=== PATIENT | male | born 1945 | race Two or more races ===

== ENCOUNTER 2017-08-22 19:03 | Inpatient (IN) | payer MEDICAID, OTHER ==
[~2017-08-22] VITALS: Ht 165.1 cm; Wt 76.6 kg
[2017-08-22 20:02] LABS: Basophils # (auto) 0 uL; Eosinophils # (auto) 0.2 uL; Monocytes # (auto) 0.8 uL; Neutrophils # (auto) 2.7 uL; Nucleated Red Blood Cells % 0.3 %; Red Blood Cells 4.45 10^6/uL (4.5-5.90)
[2017-08-22 20:06] LABS: Basophils % (auto) 0.5 % (0.0-2.0); Eosinophils % (auto) 3.1 % (0.0-7.0); Hemoglobin 10.7 g/dL (13.5-17.5); Lymphocytes # (auto) 2.7 uL; Lymphocytes % (auto) 41.5 % (10.0-50.0); Mean Corpuscular Hemoglobin 24.1 pg (28.0-32.0); Mean Corpuscular Hgb Conc. 32.4 g/dL (32.0-36.0); Mean Corpuscular Volume 74.2 fL (80.0-100.0); Monocytes % (auto) 12.6 % (0.0-12.0); Neutrophils % (auto) 42.3 % (37.0-80.0); Red Cell Distribution Width 17.2 % (11.8-14.3); White Blood Cell 6.5 10^3/uL (4.4-10.8)
[2017-08-22 20:13] LABS: Platelet Count (auto) 139 10^3/uL (140-450)
[2017-08-22 20:17] LABS: Anion Gap 3 (5-15); Blood Urea Nitrogen 19 mg/dL (7-18); Calcium 8.2 mg/dL (8.5-10.1); Carbon Dioxide 29 mmol/L (21-32); Chloride 106 mmol/L (98-107); Glucose 114 mg/dL (74-106); Lipase 119 U/L (73-393); Potassium 4.2 mmol/L (3.5-5.1); Sodium 138 mmol/L (136-145)
[2017-08-22 20:19] LABS: Amylase 49 U/L (25-115); BUN/Creatinine Ratio 13.3; GFR African American 63 mL/min; GFR Non-African American 52 mL/min
[2017-08-22 20:29] LABS: Alanine Aminotransferase 39 U/L (16-61); Alkaline Phosphatase 91 U/L (45-117); Aspartate Aminotransferase 27 U/L (15-37); Bilirubin, Total 0.6 mg/dL (0.2-1.0); Total Protein 6.5 g/dL (6.4-8.2)
[2017-08-22] MEDS ORDERED: SODIUM CHLORIDE 0.9% 1,000 ML IV ONE (21:30)
[2017-08-22 21:31] LABS: Urine Bacteria NONE SEEN /hpf (None Seen); Urine Blood 1+ /uL (Negative); Urine Mucus FEW (None Seen); Urine WBC 1 /hpf (0 - 3)
[2017-08-23] MEDS ORDERED: MORPHINE SULFATE 4 MG/ML SYR/VIAL IV PRN (04:30)
[2017-08-23] MEDS ORDERED: HYDROcodone-ACET 5/325MG TAB PO PRN (04:30)
[2017-08-23] MEDS ORDERED: ACETAMINOPHEN 500 MG TAB PO PRN (04:30)
[2017-08-23] MEDS: SODIUM CHLORIDE 0.9% 1,000 ML IV SCH ×2 (04:35→05:36)
[2017-08-23] MEDS: metroNIDAZOLE 500MG/100ML 100 ML IV SCH ×3 (05:36→22:48)
[2017-08-23 05:40] LABS: Hematocrit 27.1 % (41.0-53.0); White Blood Cell 5.9 10^3/uL (4.4-10.8)
[2017-08-23 05:46] LABS: Hemoglobin 8.9 g/dL (13.5-17.5); Mean Corpuscular Hemoglobin 24.2 pg (28.0-32.0); Mean Corpuscular Hgb Conc. 32.6 g/dL (32.0-36.0); Mean Corpuscular Volume 74.1 fL (80.0-100.0); Platelet Count (auto) 115 10^3/uL (140-450); Red Blood Cells 3.66 10^6/uL (4.5-5.90); Red Cell Distribution Width 17.1 % (11.8-14.3)
[2017-08-23 05:54] LABS: Basophils % (manual) 0 (0.0-2.0); Blast Cells 0; Metamyelocytes % 0; Promyelocytes % 0; Reactive Lymphocytes 0
[2017-08-23 05:57] LABS: BUN/Creatinine Ratio 14.4; INR 1.12 (0.9-1.15); Partial Thromboplastin Time 33.6 sec (22.64-33.71); Potassium 4.2 mmol/L (3.5-5.1); Prothrombin Time 12.2 sec (9.37-12.3)
[2017-08-23 06:20] LABS: Band Neutrophils % (manual) 2; Eosinophils % (manual) 3 (0-7); Lymphocytes % (manual) 56 (10.0-50.0); Monocytes % (manual) 10 (0-12); Myelocytes % 1
[2017-08-23 08:46] VITALS: BP 121/71
[2017-08-23] MEDS ORDERED: ASPI81TA27 PO (08:46)
[2017-08-23] MEDS: SOD CHL 0.9%/ KCL 20MEQ 1,000 ML IV SCH ×2 (09:56→22:48)
[2017-08-23] MEDS: cefTRIAXone 1GM/10ml IVPUSH 10 ML IV SCH (09:56)
[2017-08-23 11:46] VITALS: BP 99/62
[2017-08-23] MEDS: ASPirin 81 mg TAB PO SCH (13:15)
[2017-08-23] MEDS ORDERED: ADENOSINE 62 MG in GIVE UN-DILUTED 0 ML IV ONE (14:30)
[2017-08-23 14:35] VITALS: BP 102/68
[2017-08-23 16:23] VITALS: BP 112/61
[2017-08-23 22:00] VITALS: BP 115/60
[2017-08-23] MEDS: ATORVASTATIN 20 MG TAB PO SCH (22:48)
[2017-08-24] VITALS (7 sets, daily range): BP systolic 103–117; BP diastolic 53–63
[2017-08-24] MEDS: SOD CHL 0.9%/ KCL 20MEQ 1,000 ML IV SCH ×3 (05:32→22:09)
[2017-08-24] MEDS: metroNIDAZOLE 500MG/100ML 100 ML IV SCH ×3 (05:32→22:09)
[2017-08-24 06:52] LABS: Mean Corpuscular Volume 73.7 fL (80.0-100.0); Platelet Count (auto) 126 10^3/uL (140-450); White Blood Cell 5.2 10^3/uL (4.4-10.8)
[2017-08-24 06:55] LABS: Hematocrit 29.1 % (41.0-53.0); Hemoglobin 9.5 g/dL (13.5-17.5); Mean Corpuscular Hemoglobin 24.2 pg (28.0-32.0); Mean Corpuscular Hgb Conc. 32.8 g/dL (32.0-36.0); Red Blood Cells 3.95 10^6/uL (4.5-5.90); Red Cell Distribution Width 16.6 % (11.8-14.3)
[2017-08-24 07:10] LABS: BUN/Creatinine Ratio 12.1; Calcium 8.1 mg/dL (8.5-10.1); Potassium 4.2 mmol/L (3.5-5.1)
[2017-08-24 07:17] LABS: Band Neutrophils % (manual) 0
[2017-08-24 07:18] LABS: Basophils % (manual) 0 (0.0-2.0); Blast Cells 0; Metamyelocytes % 0; Myelocytes % 0; Promyelocytes % 0
[2017-08-24] MEDS: cefTRIAXone 1GM/10ml IVPUSH 10 ML IV SCH (09:00)
[2017-08-24] MEDS: ASPirin 81 mg TAB PO SCH (10:00)
[2017-08-24] MEDS ORDERED: IODIXANOL 320MG/ML 100ML BTL IV ONE ×2 (10:19→10:46)
[2017-08-24] MEDS ORDERED: LIDOCAINE 2%HCL (LOCAL ANESTH.) INJ 20ML MDV ONE (10:19)
[2017-08-24] MEDS ORDERED: fentaNYL CITRATE 100 MCG/2 ML VL ONE (10:45)
[2017-08-24] MEDS ORDERED: SODIUM CHL 0.9% 0 ML ONE (10:46)
[2017-08-24] MEDS ORDERED: MIDAZOLAM HCL 1MG/1ML-2 ML VIAL ONE (10:46)
[2017-08-24] MEDS ORDERED: VERAPAMIL 2.5MG/ML INJ 2ML VIAL IV ONE (10:47)
[2017-08-24] MEDS ORDERED: ANGIOMAX 250 MG VIAL IV ONE (10:55)
[2017-08-24] MEDS ORDERED: HEPARIN 1,000 UNITS/ml 1ML VIAL ONE ×3 (11:10→11:51)
[2017-08-24] MEDS ORDERED: ADENOSINE 90 MG/30 ML INJ IV ONE (11:34)
[2017-08-24] MEDS ORDERED: CLOPIDOGREL 300 MG TAB ONE (12:04)
[2017-08-24] MEDS ORDERED: SODIUM CHLORIDE 0.9% 1,000 ML IV SCH (13:17)
[2017-08-24 15:06] LABS: Eosinophils % (manual) 3 (0-7); Lymphocytes % (manual) 45 (10.0-50.0); Monocytes % (manual) 18 (0-12); Reactive Lymphocytes 2
[2017-08-24] MEDS: ATORVASTATIN 20 MG TAB PO SCH (22:09)
[2017-08-25] VITALS (7 sets, daily range): BP systolic 102–132; BP diastolic 53–69
[2017-08-25] MEDS: metroNIDAZOLE 500MG/100ML 100 ML IV SCH ×2 (06:02→14:26)
[2017-08-25 07:31] LABS: Hemoglobin 8.5 g/dL (13.5-17.5)
[2017-08-25 07:34] LABS: Hematocrit 25.9 % (41.0-53.0); Mean Corpuscular Hemoglobin 24.3 pg (28.0-32.0); Mean Corpuscular Volume 73.6 fL (80.0-100.0); Platelet Count (auto) 117 10^3/uL (140-450); Red Blood Cells 3.52 10^6/uL (4.5-5.90); Red Cell Distribution Width 17.1 % (11.8-14.3); White Blood Cell 4.7 10^3/uL (4.4-10.8)
[2017-08-25 07:41] LABS: Basophils % (manual) 0 (0.0-2.0); Blast Cells 0; Metamyelocytes % 0; Myelocytes % 0; Promyelocytes % 0; Reactive Lymphocytes 0
[2017-08-25 07:54] LABS: BUN/Creatinine Ratio 10.8; Calcium 7.8 mg/dL (8.5-10.1); Potassium 4.2 mmol/L (3.5-5.1)
[2017-08-25] MEDS: CLOPIDOGREL BISULFATE 75 MG TAB PO SCH (10:58)
[2017-08-25] MEDS: ASPirin 81 mg TAB PO SCH (10:59)
[2017-08-25] MEDS: cefTRIAXone 1GM/10ml IVPUSH 10 ML IV SCH (11:01)
[2017-08-25 11:37] LABS: Band Neutrophils % (manual) 1; Eosinophils % (manual) 1 (0-7); Lymphocytes % (manual) 47 (10.0-50.0); Monocytes % (manual) 11 (0-12)
[2017-08-25] MEDS ORDERED: PANTOPRAZOLE 40 MG TAB PO ONE (12:00)
[2017-08-25] MEDS: SOD CHL 0.9%/ KCL 20MEQ 1,000 ML IV SCH (14:27)
[2017-08-25] MEDS: SODIUM CHLORIDE 0.9% 1,000 ML IV SCH (14:45)
[2017-08-25] MEDS: ONDANSETRON HCL 4 MG/2 ML VIAL IV PRN ×3 (18:25→19:15)
[2017-08-25] MEDS: PANTOPRAZOLE 40 MG TAB PO SCH (21:57)
[2017-08-25] MEDS: ATORVASTATIN 20 MG TAB PO SCH (21:57)
[2017-08-25] MEDS: METOPROLOL TARTRATE 25 MG TAB PO SCH (21:58)
[2017-08-26 05:17] LABS: Hemoglobin 8.6 g/dL (13.5-17.5); Mean Corpuscular Hemoglobin 24.3 pg (28.0-32.0); Mean Corpuscular Hgb Conc. 33.1 g/dL (32.0-36.0); Mean Corpuscular Volume 73.3 fL (80.0-100.0); Platelet Count (auto) 123 10^3/uL (140-450); Red Blood Cells 3.54 10^6/uL (4.5-5.90); Red Cell Distribution Width 16.9 % (11.8-14.3); White Blood Cell 4.7 10^3/uL (4.4-10.8)
[2017-08-26 05:33] LABS: Basophils % (manual) 0 (0.0-2.0); Blast Cells 0; Metamyelocytes % 0; Myelocytes % 0; Promyelocytes % 0; Reactive Lymphocytes 0
[2017-08-26 05:47] VITALS: BP 110/51
[2017-08-26 06:18] LABS: Band Neutrophils % (manual) 2; Eosinophils % (manual) 5 (0-7); Lymphocytes % (manual) 51 (10.0-50.0); Monocytes % (manual) 8 (0-12)
[2017-08-26 06:24] LABS: Albumin 2.4 g/dL (3.4-5.0); Bilirubin, Total 0.7 mg/dL (0.2-1.0); Calcium 7.9 mg/dL (8.5-10.1); Magnesium 1.9 mg/dL (1.6-2.6); Potassium 4.2 mmol/L (3.5-5.1); Total Protein 5.1 g/dL (6.4-8.2)
[2017-08-26 09:00] VITALS: BP 114/47
[2017-08-26] MEDS: ASPirin 81 mg TAB PO SCH (09:33)
[2017-08-26] MEDS: METOPROLOL TARTRATE 25 MG TAB PO SCH (09:33)
[2017-08-26] MEDS: SODIUM CHLORIDE 0.9% 1,000 ML IV SCH (09:33)
[2017-08-26] MEDS: PANTOPRAZOLE 40 MG TAB PO SCH (09:34)
[2017-08-26] MEDS: CLOPIDOGREL BISULFATE 75 MG TAB PO SCH (09:34)
[2017-08-26] MEDS ORDERED: PANT40T PO (11:28)
[2017-08-26] MEDS ORDERED: CLOP75TA28 PO (11:28)
[2017-08-26] MEDS ORDERED: ASPI-378 PO (11:28)
[2017-08-26] MEDS ORDERED: MET25T PO (11:28)
[2017-08-26] MEDS ORDERED: ATOR80TA PO (11:28)
[2017-08-26 12:00] VITALS: BP 106/53
[2017-08-26 12:02] VITALS: BP 114/47
== END 2017-08-26 15:00 | disposition home or self-care (01) | DRG 175 ==
LOC: ER 19:03 → OVERFLOW 19:04 → CENTRAL 08-23 08:20 → TELE-CENTR 08-23 16:14 → TELE-WESTW 08-23 19:51
PROVIDERS: ADMIT Nurse Practitioner Family; ATTEND Internal Medicine
PROC: B2111ZZ Fluoroscopy of Multiple Coronary Arteries using Low Osmolar Contrast (ICD-10-PCS; principal; 2017-08-24)
PROC: 027035Z Dilation of Coronary Artery, One Artery with Two Drug-eluting Intraluminal Devices, Percutaneous Approach (ICD-10-PCS; 2017-08-24)
PROC: 4A023N7 Measurement of Cardiac Sampling and Pressure, Left Heart, Percutaneous Approach (ICD-10-PCS; 2017-08-24)
DX: T82.855A Stenosis of coronary artery stent, initial encounter (principal); N17.0 Acute kidney failure with tubular necrosis; K27.9 Peptic ulcer, site unspecified, unspecified as acute or chronic, without hemorrhage or perforation; I73.9 Peripheral vascular disease, unspecified; K80.20 Calculus of gallbladder without cholecystitis without obstruction; D50.9 Iron deficiency anemia, unspecified; E78.5 Hyperlipidemia, unspecified; E44.1 Mild protein-calorie malnutrition; I49.3 Ventricular premature depolarization; J98.11 Atelectasis; K29.70 Gastritis, unspecified, without bleeding; I25.119 Atherosclerotic heart disease of native coronary artery with unspecified angina pectoris; Y83.1 Surgical operation with implant of artificial internal device as the cause of abnormal reaction of the patient, or of later complication, without mention of misadventure at the time of the procedure; Z79.02 Long term (current) use of antithrombotics/antiplatelets; Z79.82 Long term (current) use of aspirin; Z90.49 Acquired absence of other specified parts of digestive tract
CPT/HCPCS: 36415; 71045; 76705; 78226; 80048; 80053; 80061; 81001; 82150; 82270; 82728; 83540; 83550; 83690; 83735; 84484; 85007; 85025; 85027; 85610; 85730; 86850; 86900; 86901; 92928; 93005; 93017; 93306; 93458; 96360; 99152; 99153; C1874; C1887; J0153; J2250; J2405; J3490; Q9967